=== PATIENT | female | born 1980 | race Caucasian/White ===

== ENCOUNTER 2020-12-27 15:34 | Emergency (ER) | payer OTHER, SELFPAY ==
[~2020-12-27] VITALS: Ht 160 cm; Wt 58.3 kg
--- NOTE | 2020-12-27 15:49 | NUR ---
DR MCDERMOTT INFORMED OF PT'S NEURO SX. IN TRIAGE, SPEECH CLEAR, PT AMBULATORY WITH STEADY GAIT.
[2020-12-27] MEDS ORDERED: PROMETHAZINE 25 MG/ML, 1ML ONE (16:58)
[2020-12-27] MEDS ORDERED: KETOROLAC 30 MG/1 ML ONE (16:58)
[2020-12-27] MEDS ORDERED: KETOROLAC 30 MG/1 ML IVPush ONE (17:00)
[2020-12-27] MEDS ORDERED: ONDANSETRON ODT 4 MG PO ONE (17:00)
[2020-12-27] MEDS ORDERED: MECLIZINE CHEWABLE 25 MG TAB PO ONE (17:00)
[2020-12-27] MEDS ORDERED: PROCHLORPERAZINE 5 MG/ML, 2ML IVPush ONE (17:00)
[2020-12-27] MEDS ORDERED: SODIUM CHLORIDE FLUSH 10ML SYR IVF ONE (17:00)
[2020-12-27] MEDS ORDERED: SODIUM CHLORIDE 0.9% 1,000ML IVBOLUS ONE (17:00)
[2020-12-27 17:12] LABS: BASOPHILS % (AUTO) 0 % (0-1); EOSINOPHILS % (AUTO) 3 % (1-7); LYMPHOCYTES % (AUTO) 33 % (22-44); MD NO; MEAN CORPUSCULAR HEMOGLOBIN 28.9 pg (27.0-34.8); MEAN CORPUSCULAR HGB CONC 33.5 g/dL (32.4-35.8); MEAN PLATELET VOLUME 8.3 fL (7.4-10.4); MONOCYTES % (AUTO) 8 % (2-9); NEUTROPHILS % (AUTO) 56 % (42-75); PLATELET COUNT 229 x10^3/uL (130-400); RED BLOOD COUNT 4.51 x10^6/uL (3.82-5.3); RED CELL DISTRIBUTION WIDTH 12.9 % (9.6-15.2)
[2020-12-27] MEDS ORDERED: MECLIZINE CHEWABLE 25 MG TAB ONE (17:15)
[2020-12-27 17:20] LABS: ALANINE AMINOTRANSFERASE 35 U/L (12-78); ALBUMIN 3.7 g/dL (3.4-5.0); ANION GAP 3 mmol/L (5-15); CALCIUM 8.3 mg/dL (8.5-10.1); CHLORIDE 108 mmol/L (98-107); CREATININE 0.84 mg/dL (0.55-1.02)
--- NOTE | 2020-12-27 17:21 | NUR ---
PT TO CT
[2020-12-27 17:25] LABS: ALKALINE PHOSPHATASE 47 U/L (45-117); BILIRUBIN,TOTAL 0.6 mg/dL (0.2-1.0); TOTAL PROTEIN 6.9 g/dL (6.4-8.2)
[2020-12-27] MEDS ORDERED: DIPHENHYDRAMINE 50 MG/ML, 1ML ONE (17:56)
[2020-12-27] MEDS ORDERED: DIPHENHYDRAMINE 50 MG/ML, 1ML IVPush ONE (18:00)
--- NOTE | 2020-12-27 18:16 | NUR ---
PT AMBULATES TO BATHROOM WITH . STILL C/O DIZZINESS. HAD A REACTION TO MEDS THAT MADE HER FEEL JITTERY, ANXIOUS, AND DIZZY. ERP NOTIFIED.
--- NOTE | 2020-12-27 18:55 | NUR ---
REPORT FROM MYA FIELDS
[2020-12-27 19:00] VITALS: BP 98/61
== END 2020-12-27 19:43 | disposition home or self-care (01) ==
LOC: ED 16:45
DX: G43.001 Migraine without aura, not intractable, with status migrainosus (principal); R11.0 Nausea; R53.1 Weakness
CPT/HCPCS: 36415; 70450; 71045; 80053; 85025; 93005; 96361; 96374; 96375; 99285; J0780; J1200; J1885; J7030

== ENCOUNTER 2021-04-18 07:02 | Outpatient (CLI) | payer OTHER | END 2021-04-18 23:59 | disposition home or self-care (01) | LOC: CFH 07:02 | PROVIDERS: ATTEND Internal Medicine | DX: N63.11 Unspecified lump in the right breast, upper outer quadrant (principal); N60.01 Solitary cyst of right breast; N64.9 Disorder of breast, unspecified | CPT/HCPCS: 76642; 77066 ==